=== PATIENT | female | born 1975 | race Caucasian/White ===

== ENCOUNTER 2016-11-16 13:34 | Emergency (ER) | payer OTHER ==
[~2016-11-16] VITALS: Ht 170.2 cm; Wt 113.4 kg
[2016-11-16] MEDS ORDERED: AMIT10TA PO (14:08)
[2016-11-16] MEDS ORDERED: PROZ20CA11 PO (14:08)
[2016-11-16] MEDS ORDERED: traMADol 50 MG TAB PO ONE (15:00)
--- NOTE | 2016-11-16 15:13 | REP ---
Right lower extremity deep vein duplex ultrasound: The deep veins demonstrate normal compression, normal Doppler color flow and normal Doppler waveforms with respiration and augmentation at multiple levels. Impression: There is no thrombus in the right lower extremity. Signed by Kishor Stout MD 11/16/2016 03:05 P
[2016-11-16 15:47] VITALS: BP 125/79
== END 2016-11-16 15:50 | disposition home or self-care (01) ==
LOC: M ED 15:22
DX: R60.0 Localized edema (principal)